=== PATIENT | male | born 1995 | race Caucasian/White ===

== ENCOUNTER 2017-02-01 21:24 | Emergency (ER) | payer BC, MEDICAID, OTHER ==
[~2017-02-01] VITALS: Ht 180.3 cm; Wt 81.6 kg
[2017-02-01 21:54] VITALS: BP 124/70
== END 2017-02-02 01:05 | disposition home or self-care (01) ==
LOC: ER 21:28
DX: H65.92 Unspecified nonsuppurative otitis media, left ear (principal); Z88.0 Allergy status to penicillin

== ENCOUNTER 2025-03-07 17:06 | Emergency (ER) | payer BC, MEDICAID ==
[~2025-03-07] VITALS: Ht 180.3 cm; Wt 95.1 kg
--- NOTE | 2025-03-07 17:19 | ED.PDOC ---
Eye-HPI HPI Comments 29 y/o M, presents to the ED for CC of tooth pain and left-sided lower facial swelling. Patient states, he has been experiencing lower left-sided tooth pain onset, Tuesday (03/05/25) and that the symptoms have just worsened over the past few days. Patient comments, on taking over the counter pain medications with no relief of symptoms. Patient denies fever, nausea, vomiting, or headache. Vital signs were stable at arrival. Time Seen by MD: 17:15 Primary Care Provider: NONE Reviewed Notes: Nurses Notes, Medications, Allergies Allergies: Coded Allergies: Penicillins (Unverified Allergy, Unknown, 02/27/14) Information Source: Patient Mode of Arrival: Ambulatory Timing: Days Duration: Since onset Prehospital treatment: None Quality: Pain Lids: Normal Conjunctiva: Normal Cornea: Normal Pupils: Normal EOM: Normal Fundus: Normal Slit lamp exam: Normal Anterior chamber: Normal Mouth: Carious ENT Ear Exam: Normal Nose: Normal Sinuses: Normal Oropharynx: Normal Throat Exposed to: None History of: None Last Tetanus: Unknown Modifying factors: Nothing Associated signs and symptoms: Tooth Pain Past Medical History PAST MEDICAL HISTORY: Denies Surgical History: Denies all surgeries Family History Family History: Unknown Social History Smoker: Non-Smoker Alcohol: Denies ETOH Use Drugs: Denies Drug Use Lives In: Home Constitutional: denies: chills, diaphoresis, fatigue, fever, malaise, sweats, weakness, others EENTM: reports: mouth pain (Left lower dental pain with facial swelling); denies: blurred vision, double vision, ear bleeding, ear discharge, ear drainage, ear pain, ear ringing, eye pain, eye redness, hearing loss, mouth swe lling, nasal discharge, nose bleeding, nose congestion, nose pain, photophobia, tearing, throat pain, throat swelling, voice changes, others Respiratory: denies: cough, hemoptysis, orthopnea, SOB at rest, shortness of breath, SOB with excertion, stridor, wheezing, others Cardiovascular: denies: chest pain, dizzy spells, diaphoresis, Dyspnea on exertion, edema, irregular heart beat, left arm pain, lightheadedness, palpitations, PND, syncope, others Gastrointestinal: denies: abdomen distended, abdominal pain, blood streaked bowels, constipated, diarrhea, dysphagia, difficulty swallowing, hematemesis, melena, nausea, poor appetite, poor fluid intake, rectal bleeding, rectal pain, vomiting, others Genitourinary: denies: burning, dysuria, flank pain, frequency, hematuria, incontinence, penile discharge, penile sore, pain, testicle pain, testicle swelling, urgency, others Neurological: denies: dizziness, fainting, headache, left sided numbness, left sided weakness, numbness, paresthesia, pre-existing deficit, right sided numbness, right sided weakness, seizure, speech problems, tingling, tremors, weakness, others Musculoskeletal: denies: back pain, gout, joint pain, joint swelling, muscle pain, muscle stiffness, neck pain, others Integumetry: denies: bruises, change in color, change in hair/nails, dryness, laceration, lesions, lumps, rash, wounds, others Allergic/Immunocompromised: denies: Difficulty Healing, Frequent Infections, Hives, Itching, others Hematologic/Lymphatic: denies: anemia, blood clots, easy bleeding, easy bruising, swollen glands, others Endocrine: denies: excessive hunger, excessive sweating, excessive thirst, excessive urination, flushing, intolerance to cold, intolerance to heat, unexplained weight gain, unexplained weight loss, others Psychiatric: denies: anxiety, bipolar disorder, depression, hopeless, panic disorder, schizophrenia, sleepless, suicidal, others All Other Systems: Reviewed and Negative Physical Exam General Appearance: Moderate Distress (Due to left-sided lower dental pain), Normal HEENT: Pharynx Normal, TMs Normal, Other (Patient displays a dental angelia and dental abscess on tooth 18 on left lower jaw. Localized erythema and edema extending into the left lower cheek. No drainage noted.) Neck: Full Range of Motion, Non-Tender, Normal, Normal Inspection Respiratory: Chest Non-Tender, Lungs Clear, No Accessory Muscle Use, No Respiratory Distress, Normal Breath Sounds Cardiovascular: No Edema, No JVD, No Murmur, No Gallop, Normal Peripheral Pulses, Regular Rate/Rhythm Breast Exam: Deferred Gastrointestinal: No Organomegaly, Non Tender, No Pulsatile Mass, Normal Bowel Sounds, Soft Genitalia: Deferred Pelvic: Deferred Rectal: Deferred Extremities: No calf tenderness, Normal capillary refill, Normal inspection, Normal range of motion, Non-tender, No pedal edema Neurologic: Alert, No Motor Deficits, Normal Affect, Normal Mood, No Sensory Deficits Cerebellar Function: Normal Reflexes: Normal Skin: Dry, Normal Color, Warm Lymphatic: No Adenopathy Was a procedure done? Was a procedure done?: No EENT DIFF Eye: N/A Nose: N/A Mouth: Other (dental caries, dental abscess) Sore Throat: N/A X-Ray, Labs, Meds, VS Vital Signs Date Time Temp Pulse Resp B/P (MAP) Pulse Ox O2 Delivery O2 Flow Rate FiO2 03/07/25 17:11 98.5 83 18 140/101 (114) 94 98.5 X-Ray, Labs, Meds, VS Comment Advised patient that unfortunately his dental angelia has developed into a dental abscess. Patient was given pain medication prior to discharge. Advised patient utilize antibiotics as directed until completion. Patient needs to follow up with dentist for definitive management of his dental abscess concerns. Time of 1ST Reevaluation: 17:38 Reevaluation 1ST: Improved Consultation: PCP, Other (Dentist) Patient Education/Counseling: Diagnosis, Treatment Family Education/Counseling: Diagnosis, Treatment, No Family Present SEPSIS Sepsis Screen Recent Procedure: No On Antibiotic Therapy: No Respiratory Rate >20: No Heart Rate >90: No Temp<36 C (96.8 F) or >38.3 C: No SBP <90 or MAP <65 mmHG: No New Acute Mental Status Change: No Is the patient on CPAP, BIPAP,: No Vital Signs Date Time Temp Pulse Resp B/P (MAP) Pulse Ox O2 Delivery O2 Flow Rate FiO2 03/07/25 17:11 98.5 83 18 140/101 (114) 94 98.5 Departure 1 Departure Time of Disposition: 17:38 Impression: Primary Impression: Dental abscess Disposition: HOME / SELF CARE / HOMELESS Condition: Stable Additional Instructions: Advise utilizing antibiotics as directed until completion. Patient can utilize pain medication as needed. Patient needs to follow up with dentist for definitive evaluation and management of his dental abscess concern. e-Prescriptions Hydrocodone-Acetaminophen (Hydrocodone Bitartrate/AC 5-325 mg) 1 Tab Tab 1 TAB PO Q6HP PRN, #12 TAB Prov: VIK REYNA PAC 03/07/25 Ibuprofen (Ibuprofen) 800 Mg Tab 1 TAB PO Q8HP PRN, #20 TAB 0 Refills Prov: VIK REYNA PAC 03/07/25 Amoxicillin & Pot Clavulanate (AUGMENTIN TABLET) 875 Mg Tb 875 MG PO BID for 10 Days, #20 TAB Prov: VIK REYNA PAC 03/07/25 Discharged With: Self, Friend Critical Care Note Critical Care Time?: No Stability Stability form required: No Heart Score Heart Score: Heart Score Response (Comments) Value History N/A 0 EKG N/A 0 Age N/A 0 Risk Factors N/A 0 Troponin N/A 0 Total 0 I personally scribed for VIK REYNA PAC ([email or web address]) on 03/07/25 at 17:19. Electronically submitted by Anna Marie Dey ([email or web address]). I personally scribed for VIK REYNA PAC ([email or web address]) on 03/07/25 at 17:24. Electronically submitted by Anna Marie Dey ([email or web address]). VIK REYNA PAC Mar 07, 2025 17:19
[2025-03-07] MEDS ORDERED: HYDR-4902 PO (17:40)
[2025-03-07] MEDS ORDERED: IBUP-1456 PO (17:40)
[2025-03-07] MEDS ORDERED: AUG875T PO (17:40)
[2025-03-07] MEDS: HYDROcodone-ACET 10/325MG TAB PO ONE (18:00)
[2025-03-07] MEDS: KETOROLAC TROMETH 60MG/2ML VIAL IM ONE (18:00)
[2025-03-07 19:00] VITALS: BP 150/92; PULSE 68; RESP 18; TEMP 98.9; O2SAT 98
== END 2025-03-07 19:15 | disposition home or self-care (01) ==
LOC: ER 17:10
DX: K04.7 Periapical abscess without sinus (principal); Z88.0 Allergy status to penicillin
CPT/HCPCS: 96372; 99283; J1885